=== PATIENT | female | born 1985 | race Two or more races ===

== ENCOUNTER 2016-05-03 13:33 | Emergency (ER) | payer OTHER ==
[2016-05-03 14:38] VITALS: BP 144/68
--- NOTE | 2016-05-03 14:54 | UC ---
Upper Extremity HPI - HPI Summary HPI Summary: Patient has had periodic numbness in the right hand over the past two months. she notices it happens frequently after she has been . - History of Current Complaint Chief Complaint: UCUpperExtremity Stated Complaint: RIGHT HAND FEELS NUMB Time Seen by Provider: 05/03/16 14:49 Hx Obtained From: Patient Hx Last Menstrual Period: UNKNOWN ?: No Onset/Duration: Sudden Onset, Lasting Weeks Severity Initially: Mild Severity Currently: Moderate Pain Intensity: 0 Pain Scale Used: 0-10 Numeric Location Of Pain: Is Discrete @ - right thumb and other fingers on occasion Alleviating Factor(s): Nothing Associated Signs And Symptoms: Positive: Numbness/Tingling - Risk Factors Non-Orthopedic Risk Factor: Negative DVT Risk Factors: Negative - Allergies/Home Medications Allergies/Adverse Reactions: Allergies Allergy/AdvReac Type Severity Reaction Status Date / Time No Known Allergies Allergy Verified 07/17/15 07:36 PMH/Surg Hx/FS Hx/Imm Hx Previously Healthy: Yes Endocrine History Of: Denies: Diabetes, Thyroid Disease Cardiovascular History Of: Denies: Cardiac Disorders, Hypertension Respiratory History Of: Denies: COPD, Asthma GI/ History Of: Denies: Ulcer - Surgical History Surgical History: Yes Surgery Procedure, Year, and Place: csection - Family History Known Family History: Positive: Hypertension, Diabetes - Social History Alcohol Use: None Substance Use Type: None Smoking Status (MU): Never Smoked Tobacco - Immunization History Most Recent Influenza Vaccination: none Most Recent Tetanus Shot: 12/02/13 Most Recent Pneumonia Vaccination: none Review of Systems Constitutional: Negative Skin: Negative Eyes: Negative ENT: Negative Respiratory: Negative Cardiovascular: Negative Gastrointestinal: Negative Genitourinary: Negative Motor: Negative Neurovascular: Decreased Sensation Musculoskeletal: Myalgia Neurological: Negative All Other Systems Reviewed And Are Negative: Yes Physical Exam Triage Information Reviewed: Yes Appearance: Ill-Appearing, Pain Distress, Obese Vital Signs: Initial Vital Signs Temp 96.9 F 05/03/16 14:35 Pulse 105 05/03/16 14:35 Resp 15 05/03/16 14:35 BP 144/68 05/03/16 14:35 Pulse Ox 100 05/03/16 14:35 Vital Signs Reviewed: Yes Eye Exam: Normal Eyes: Positive: Conjunctiva Clear ENT Exam: Normal ENT: Positive: Normal ENT inspection, Pharynx normal, TMs normal Dental Exam: Normal Neck exam: Normal Neck: Positive: Supple, Nontender, No Lymphadenopathy Respiratory Exam: Normal Respiratory: Positive: Chest non-tender, Lungs clear, Normal breath sounds Cardiovascular Exam: Normal Cardiovascular: Positive: RRR, No Murmur, Pulses Normal Abdominal Exam: Normal Abdomen Description: Positive: Nontender, No Organomegaly, Soft Bowel Sounds: Positive: Present Musculoskeletal: Positive: Strength Intact, No Edema, ROM Limited @ - due to size of extremities, Other: - alvaro test neg, tinel test neg, shoulder abduction increases numbness and tingling. neck ROM is limited, muscles are tight Neurological Exam: Normal Neurological: Positive: Alert, Muscle Tone Normal Psychological Exam: Normal Skin Exam: Normal Upper Extremity Course/Dx - Course Course Of Treatment: hx obtained, medication reviewed. exam performed. educated on proper stretching and posture techniques. PT referral given, Recommend NSAIDs for anti inflammatory. - Differential Dx/Diagnosis Differential Diagnosis/HQI/PQRI: Bursitis, Strain, Sprain, Other Provider Diagnoses: thoracic outlet syndrome. obesity. numbness in right hand Discharge - Discharge Plan Condition: Stable Disposition: HOME Patient Education Materials: Thoracic Outlet Syndrome (ED) Additional Instructions: Take the ibuprofen 400 -600 mg every 4-6 hours. I recommend follow up with PT to help stretch out the musculature around the neck and shoulder.
== END 2016-05-03 15:05 | disposition home or self-care (01) ==
LOC: UCEAST 13:33
DX: G54.0 Brachial plexus disorders (principal); E66.9 Obesity, unspecified; R20.0 Anesthesia of skin
CPT/HCPCS: 99211; G0463

== ENCOUNTER 2016-10-12 07:13 | Emergency (ER) | payer OTHER ==
[2016-10-12 07:25] VITALS: BP 143/89
--- NOTE | 2016-10-12 07:47 | UC ---
Ear Complaint HPI - HPI Summary HPI Summary: ONSET OF LEFT EAR PAIN AND MUTED HEARING YESTERDAY. NO URI SX OR FEVER. ALSO HAS NOTICED A PAINFUL SPOT ON LEFT NIPPLE FOR PAST 1 WEEK. PT HAS BEEN FOR THE PAST 2.5 YEARS AND CHILD EATS PREFERENTIALLY ON LEFT SIDE. PAIN IS SLIGHTLY IMPROVED SINCE ONSET. NO BREAST FIRMNESS OR REDNESS. - History of Current Complaint Chief Complaint: UCEar Stated Complaint: EAR PAIN Time Seen by Provider: 10/12/16 07:34 Hx Obtained From: Patient Hx Last Menstrual Period: has not had since baby 4 yrs Onset/Duration: Gradual Onset, Lasting Days, Still Present Severity Initially: Moderate Severity Currently: Moderate Pain Intensity: 7 Pain Scale Used: 0-10 Numeric Aggravating Factors: Nothing Alleviating Factors: Nothing Associated Signs/Symptoms: Positive: Hearing Loss - Allergies/Home Medications Allergies/Adverse Reactions: Allergies Allergy/AdvReac Type Severity Reaction Status Date / Time No Known Allergies Allergy Verified 07/17/15 07:36 Home Medications: Home Medications Fluticasone NASAL SPRAY 50MCG* [Flonase NASAL SPRAY 50MCG*] 1 NASAL PRN [History] PMH/Surg Hx/FS Hx/Imm Hx Previously Healthy: Yes - Surgical History Surgical History: Yes Surgery Procedure, Year, and Place: csection - Family History Known Family History: Positive: Hypertension, Diabetes - Social History Alcohol Use: Occasionally Substance Use Type: None Smoking Status (MU): Never Smoked Tobacco - Immunization History Most Recent Influenza Vaccination: none Most Recent Tetanus Shot: 12/02/13 Most Recent Pneumonia Vaccination: none Review of Systems Constitutional: Negative Skin: Other - LEFT NIPPLE IRRITATION ENT: Ear Ache Respiratory: Negative Cardiovascular: Negative Gastrointestinal: Negative All Other Systems Reviewed And Are Negative: Yes Physical Exam Triage Information Reviewed: Yes Appearance: Well-Appearing, No Pain Distress, Well-Nourished Vital Signs: Initial Vital Signs Temp 98.6 F 10/12/16 07:19 Pulse 96 10/12/16 07:19 Resp 16 10/12/16 07:19 BP 143/89 10/12/16 07:19 Pulse Ox 97 10/12/16 07:19 Vital Signs Reviewed: Yes Eyes: Positive: Conjunctiva Clear ENT: Positive: Hearing grossly normal, Pharynx normal, Other: - RIGHT TM NORMAL. LEFT EAC EDEMATOUS WITH DEBRIS. TM NOT WELL VISUALIZED Neck: Positive: Supple, Nontender, No Lymphadenopathy Respiratory: Positive: No respiratory distress, No accessory muscle use Cardiovascular: Positive: Pulses Normal Abdomen Description: Positive: Soft Musculoskeletal: Positive: No Edema Neurological: Positive: Alert Psychological: Positive: Age Appropriate Behavior Skin: Positive: Other - LEFT NIPPLE WITH 3MM AREA OF SLIGHTLY HYPERTROPHIED SKIN. MILDLY TENDER. NO BREAST MASS OR FIRMNESS.. Negative: rashes Ear Complaint Course/Dx - Differential Dx/Diagnosis Provider Diagnoses: 1. LEFT OTITIS EXTERNA. 2. LEFT NIPPLE IRRITATION Discharge - Discharge Plan Condition: Stable Disposition: HOME Prescriptions: Amoxicillin CAP* [Amoxicillin 500 MG CAP*] 1,000 mg PO Q12H #28 cap Ciproflox/Dexameth OTIC.SUSP* [Ciprodex Otic*] 4 drop LEFT EAR BID #1 bottle Patient Education Materials: Otitis Externa (ED), Otitis Media (ED) Referrals: No Primary Care Phys,NOPCP [Primary Care Provider] - Additional Instructions: FOLLOW UP WITH ENT IF YOU ARE NOT IMPROVING EXPECTED OVER THE NEXT SEVERAL DAYS. [facility] [place] [address] AND [address] [phone] THE SPOT ON YOUR NIPPLE APPEARS TO BE HYPERTROPHIED OR AGGRAVATED TISSUE. IT DOES NOT LOOK INFECTED AT ALL. NO SIGN OF MASTITIS. IF IT DOES NOT CONTINUE TO IMPROVE TRY DECREASING THE BREAST FEEDING ON THAT SIDE. YOU MAY PUMP TO RELIEVE PRESSURE IF NEEDED. CALL THE NUMBER BELOW FOR ASSISTANCE IN ESTABLISHING WITH A PCP An additional resource available to assist in finding the appropriate physician for your health care needs is the [facility] ([facility]). You may contact them by calling [phone].
== END 2016-10-12 08:01 | disposition home or self-care (01) ==
LOC: UCEAST 07:13
DX: H60.92 Unspecified otitis externa, left ear (principal); N64.59 Other signs and symptoms in breast
CPT/HCPCS: 99212; G0463

== ENCOUNTER 2016-10-18 17:17 | Emergency (ER) | payer OTHER ==
[2016-10-18 17:51] VITALS: BP 147/90
--- NOTE | 2016-10-18 19:08 | UC ---
Ear Complaint HPI - HPI Summary HPI Summary: The patient comes in today for: 1. Right ear pain and decreased hearing, and "little bit" of pain in the left ear. Onset: One week ago. Palliative/provocative: Amoxicillin and ibuprofen. Quality: Sharp Region: Bilateral ears. Severity: 4/10 Time: Constant Associated symptoms: Fevers: None recently Discharge: both ears--purulent Previous ear disease: None. She was seen on 10/[address] Yusuf who diagnosed otitis externa. Dr. Gramajo ordered Ciprodex. The patient tells me that she took the amoxicillin, but the Ciprodex was not covered by Medicaid. So, another ear drop was prescribed. However, this second medication was not covered by Medicaid also. A third ear drop was prescribed, but even though this was covered by Medicaid, it stung when she put it in her ears and she was told to stop it. She has not used any ear drops since then. She has no primary care provider. * - History of Current Complaint Chief Complaint: UCEar Stated Complaint: EAR PAIN Time Seen by Provider: 10/18/16 19:00 Hx Obtained From: Patient Hx Last Menstrual Period: 2.5 years ago. - Allergies/Home Medications Allergies/Adverse Reactions: Allergies Allergy/AdvReac Type Severity Reaction Status Date / Time No Known Allergies Allergy Verified 07/17/15 07:36 PMH/Surg Hx/FS Hx/Imm Hx Previously Healthy: No - allergic rhinits. - Surgical History Surgical History: Yes Surgery Procedure, Year, and Place: csection - Family History Known Family History: Positive: Hypertension, Diabetes - Social History Occupation: Unemployed Lives: With Family Alcohol Use: Occasionally Substance Use Type: None Smoking Status (MU): Never Smoked Tobacco - Immunization History Most Recent Influenza Vaccination: none Most Recent Tetanus Shot: 12/02/13 Most Recent Pneumonia Vaccination: none Review of Systems Constitutional: Negative Skin: Negative Eyes: Negative ENT: Ear Ache Respiratory: Negative Cardiovascular: Negative Gastrointestinal: Negative Genitourinary: Negative All Other Systems Reviewed And Are Negative: Yes Physical Exam Triage Information Reviewed: Yes Appearance: Well-Appearing, No Pain Distress, Obese Vital Signs: Initial Vital Signs Temp 98.7 F 10/18/16 17:47 Pulse 92 10/18/16 17:47 Resp 18 10/18/16 17:47 BP 147/90 10/18/16 17:47 Pulse Ox 100 10/18/16 17:47 Vital Signs Reviewed: Yes Eyes: Positive: Conjunctiva Clear. Negative: Discharge ENT: Positive: Hearing grossly normal, Other: - Ears: The right ear canal was almost completely swollen shut. I was not able to see the TM but pinna traction elicited pain. The left ear canal was swollen also, but I was able to see the TM which was peralta. It was not as tender to traction of the pinna or tragal pressure.. Negative: Pharyngeal erythema, Nasal congestion, Nasal drainage, Tonsillar swelling, Tonsillar exudate Dental: Negative: Gross Decay/Caries @, Dental Fracture @ Neck: Positive: Supple, Nontender, No Lymphadenopathy. Negative: Nuchal Rigidity Respiratory: Positive: Chest non-tender, Lungs clear, No respiratory distress, No accessory muscle use. Negative: Rhonchi, Wheezing Cardiovascular: Positive: RRR, No Murmur Abdomen Description: Positive: Nontender, No Organomegaly, Soft. Negative: Distended, Guarding Musculoskeletal: Positive: Strength Intact, ROM Intact, No Edema Neurological: Positive: Alert, Muscle Tone Normal Psychological: Positive: Age Appropriate Behavior, Consolable Skin: Negative: rashes, breakdown Discharge - Discharge Plan Referrals: No Primary Care Phys,NOPCP [Primary Care Provider] -
[2016-10-18] MEDS ORDERED: Neomyc/Polym/HC 1% OTIC SUSP* **OTIC BOTH EARS ONE (19:24)
--- NOTE | 2016-10-18 19:56 | UC ---
Ear Complaint HPI - HPI Summary HPI Summary: The patient comes in today for: 1. Right ear pain and decreased hearing, and "little bit" of pain in the left ear. Onset: One week ago. Palliative/provocative: Amoxicillin and ibuprofen. Quality: Sharp Region: Bilateral ears. Severity: 4/10 Time: Constant Associated symptoms: Fevers: None recently Discharge: both ears--purulent Previous ear disease: None. She was seen on 10/[address] Yusuf who diagnosed otitis externa. Dr. Gramajo ordered Ciprodex. The patient tells me that she took the amoxicillin, but the Ciprodex was not covered by Medicaid. So, another ear drop was prescribed. However, this second medication was not covered by Medicaid also. A third ear drop was prescribed, but even though this was covered by Medicaid, it stung when she put it in her ears and she was told to stop it. She has not used any ear drops since then. She has no primary care provider. * - History of Current Complaint Chief Complaint: UCEar Stated Complaint: EAR PAIN Time Seen by Provider: 10/18/16 19:00 Hx Obtained From: Patient Hx Last Menstrual Period: unknown ?: Yes - Allergies/Home Medications Allergies/Adverse Reactions: Allergies Allergy/AdvReac Type Severity Reaction Status Date / Time No Known Allergies Allergy Verified 07/17/15 07:36 PMH/Surg Hx/FS Hx/Imm Hx Previously Healthy: No - allergies - Surgical History Surgical History: Yes Surgery Procedure, Year, and Place: csection - Family History Known Family History: Positive: Hypertension, Diabetes - Social History Occupation: Unemployed Lives: With Family Alcohol Use: Occasionally Substance Use Type: None Smoking Status (MU): Never Smoked Tobacco - Immunization History Most Recent Influenza Vaccination: none Most Recent Tetanus Shot: 12/02/13 Most Recent Pneumonia Vaccination: none Review of Systems Constitutional: Negative Skin: Negative ENT: Ear Ache Genitourinary: Negative Motor: Negative Musculoskeletal: Negative All Other Systems Reviewed And Are Negative: Yes Physical Exam Triage Information Reviewed: Yes Appearance: Well-Appearing, No Pain Distress, Well-Nourished Vital Signs: Initial Vital Signs Temp 98.7 F 10/18/16 17:47 Pulse 92 10/18/16 17:47 Resp 18 10/18/16 17:47 BP 147/90 10/18/16 17:47 Pulse Ox 100 10/18/16 17:47 Vital Signs Reviewed: Yes Eyes: Positive: Conjunctiva Clear. Negative: Discharge ENT: Positive: Hearing grossly normal, Other: - Right ear: The ear canal is swollen to the point that I can 't see the TM. However, the left ear has a peralta TM. The canal is also swollen but not as bad as the right.. Negative: Pharyngeal erythema, Nasal congestion, Nasal drainage, Tonsillar swelling, Tonsillar exudate Dental: Negative: Gross Decay/Caries @, Dental Fracture @ Neck: Positive: Supple, Nontender, No Lymphadenopathy. Negative: Nuchal Rigidity Respiratory: Positive: Lungs clear, No respiratory distress, No accessory muscle use. Negative: Crackles, Wheezing Cardiovascular: Positive: RRR, No Murmur, Pulses Normal Abdomen Description: Positive: Nontender, No Organomegaly, Soft. Negative: Distended, Guarding Musculoskeletal: Positive: Strength Intact, ROM Intact, No Edema Neurological: Positive: Alert, Muscle Tone Normal Psychological: Positive: Age Appropriate Behavior, Consolable Skin: Negative: rashes, breakdown Ear Complaint Course/Dx - Course Course Of Treatment: Patient had one ear wick put in each ear canal. Corticosporin was put in both ears to swell the wick. It was tolerated. - Differential Dx/Diagnosis Provider Diagnoses: bilateral otitis externa. Discharge - Discharge Plan Condition: Stable Disposition: HOME Patient Education Materials: Otitis Externa (ED) Referrals: No Primary Care Phys,NOPCP [Primary Care Provider] - [facility] [place] [facility] [Outside] Erwin Jewell MD [Medical Doctor] -
== END 2016-10-18 20:05 | disposition home or self-care (01) ==
LOC: UCEAST 17:17
DX: H60.93 Unspecified otitis externa, bilateral (principal)
CPT/HCPCS: 99211; A9270-GY; G0463